=== PATIENT | female | born 1930 | race Caucasian/White ===

== ENCOUNTER 2019-09-17 18:52 | Emergency (ER) | payer MEDICARE ==
[~2019-09-17] VITALS: Ht 149.9 cm; Wt 45.4 kg
[2019-09-17 18:54] VITALS: BP 98/40
--- NOTE | 2019-09-17 19:06 | NUR ---
PT STATED SHE MAKE HER DO THINGS WHEN SHE IS TIRED;----NEAR SYNCOPE SHE ATTEMPTED TO GET UP FROM WHEELCHAIR---DENIES HEADACHE OR SOB AT THIS TIME
--- NOTE | 2019-09-17 19:32 | NUR ---
XRAY AT BEDSIDE.
--- NOTE | 2019-09-17 19:33 | NUR ---
BROUGHT IN BY EMS FROM ALF PT ATTEMPTED TO GET UP FROM WHEELCHAIR WHEN HAD A NEAR SYNCOPE EPISODE, NO INJURY. no loc. pt in bed laying down, HOB elevated, connected on the cardiac cath lab manager. HX--DEMENTIA
--- NOTE | 2019-09-17 20:50 | NUR ---
CALLED LAB TO RUN URINE SPECIMEN.
[2019-09-17 21:03] LABS: BILIRUBIN,URINE NEGATIVE (NEGATIVE); BLOOD, URINE TRACE-I (NEGATIVE); COLOR,URINE YELLOW (YELLOW); LEUKOCYTE ESTERASE ,URINE 3+ (NEGATIVE); NITRITE, URINE POSITIVE (NEGATIVE); UGLUCOSE NEGATIVE (NEGATIVE)
[2019-09-17 21:06] LABS: APPEARANCE,URINE CLOUDY (CLEAR)
[2019-09-17 21:18] LABS: RBC,URINE 0-5 /HPF (0-5); WBC,URINE TOO MANY TO COUNT /HPF (0-5)
--- NOTE | 2019-09-17 21:35 | NUR ---
pt in bed sleeping, visible chest rise and fall. pt is IGIUGIG. arousable to name and voice. no further needs at this time. bed lowest and locked, rails up x2.
[2019-09-17] MEDS ORDERED: cefTRIAXone 1,000 MG VIAL ONE (21:49)
[2019-09-17 21:50] LABS: CREATINE KINASE MB 0.6 ng/mL (0-3.6)
--- NOTE | 2019-09-17 22:03 | NUR ---
ROCEPHIN INFUSION INITITATED. PT TOLERATED WELL. NO FURTHER NEEDS AT THIS TIME.
[2019-09-17 22:48] LABS: MEAN CORPUSCULAR VOLUME 94.3 fL (80-94)
[2019-09-17 22:55] LABS: HEMATOCRIT 40.7 % (36-48); HEMOGLOBIN 13.3 g/dL (12.0-16.0); MEAN CORPUSCULAR HEMOGLOBIN 31 pg (27-31); MEAN CORPUSCULAR HGB CONC 33 g/dL (33-37); PLATELET COUNT (AUTO) 180 K/uL (140-450); RED BLOOD CELL COUNT(AUTO) 4.32 MIL/uL (4.20-5.40); RED CELL DISTRIBUTION WIDTH 16.4 % (11.6-13.7)
[2019-09-17 23:14] LABS: WHITE BLOOD COUNT (AUTO) 15.7 K/uL (4.8-10.8)
[2019-09-17 23:28] LABS: ALBUMIN 2.8 g/dL (3.4-5.0); ANION GAP 16.5 (8-16); ASPARTATE AMINOTRANSFERASE 46 U/L (15-37); CARBON DIOXIDE 24.5 mmol/L (21-32); CHLORIDE 104 mmol/L (98-107); CREATININE 0.7 mg/dL (0.6-1.3); GLUCOSE 148 mg/dL (74-106); SODIUM SERUM 141 mmol/L (136-145); TOTAL BILIRUBIN 0.7 mg/dL (0.0-1.0); UREA NITROGEN, BLOOD 22 mg/dL (7-18)
--- NOTE | 2019-09-17 23:45 | NUR ---
PT IN BED SLEEPING. VISIBLE CHEST RISE AND FALL. AROUSABLE TO NAME AND VOICE. NO FURTHER NEEDS AT THIS TIME. BED LOWEST AND LOCKED, RAILS X 2
--- NOTE | 2019-09-18 00:17 | NUR ---
[facility] Addendum: 09/18/19 at 0024 by [facility] GAVE REPORT TO DOV AGUIRRE AT [facility]
--- NOTE | 2019-09-18 00:18 | NUR ---
PT GIVEN FOOD. AWAKE AND ALERT. NO FURTHER NEEDS AT THIS TIME.
--- NOTE | 2019-09-18 00:45 | NUR ---
[facility] TRANSPORT AT BEDSIDE
[2019-09-18 00:53] VITALS: BP 90/37
--- NOTE | 2019-09-18 00:54 | NUR ---
Patient to be transferred to [facility]. Is being transferred due to [facility]. Receiving facility has accepting physician and available space. ER physician has signed transfer form. Patient or responsible republican has agreed to transfer and signed form. Patient belongings inventoried and will be sent with patient. Copy of nursing notes, lab reports, EKG, Physicians Orders and X-rays to be sent with patient. Report called to [facility] at receiving facility.
== END 2019-09-18 00:54 | disposition short-term general hospital (02) ==
LOC: MED 18:52
DX: R55 Syncope and collapse (principal); N39.0 Urinary tract infection, site not specified; E07.9 Disorder of thyroid, unspecified; F03.90 Unspecified dementia, unspecified severity, without behavioral disturbance, psychotic disturbance, mood disturbance, and anxiety; I51.89 Other ill-defined heart diseases; I63.9 Cerebral infarction, unspecified; Z86.73 Personal history of transient ischemic attack (TIA), and cerebral infarction without residual deficits
CPT/HCPCS: 36415; 71045; 80053; 80061; 81001; 82550; 82553; 83880; 84484; 85025; 87040; 87086; 87186; 93005; 96365; 99285; J0696; Q0092; 99284